=== PATIENT | female | born 1950 | race Caucasian/White ===

== ENCOUNTER 2016-12-25 09:04 | Outpatient (CLI) | payer MEDICARE, BC | END 2016-12-25 09:05 | disposition home or self-care (01) | DX: Z12.31 Encounter for screening mammogram for malignant neoplasm of breast (principal) ==

== ENCOUNTER 2017-06-04 11:21 | Outpatient (CLI) | payer MEDICARE, BC ==
[2017-06-04 19:09] LABS: BASOPHILS # (AUTO) 0.1 10^3/uL (0.0-0.1); EOSINOPHILS # (AUTO) 0.3 10^3/uL (0.0-0.7); EOSINOPHILS % (AUTO) 3.9 %; HCT - HEMATOCRIT 38.2 % (37.0-47.0); HGB - HEMOGLOBIN 12.4 g/dL (12.0-16.0); LYMPHOCYTES # (AUTO) 2.5 10^3/uL (1.5-3.5); LYMPHOCYTES % (AUTO) 35.6 %; MEAN CORPUSCULAR HEMOGLOBIN 29.3 pg (27.0-31.0); MEAN CORPUSCULAR HGB CONC 32.4 g/dL (32.0-36.0); MEAN CORPUSCULAR VOLUME 90.6 fL (81.0-99.0); MEAN PLATELET VOLUME 8.5 fL (7.9-10.8); MONOCYTES # (AUTO) 0.5 10^3/uL (0.0-1.0); MONOCYTES % (AUTO) 7.5 %; NEUTROPHILS # (AUTO) 3.6 10^3/uL (1.5-6.6); RED BLOOD COUNT 4.21 10^6/uL (4.20-5.40); RED CELL DISTRIBUTION WIDTH 14.3 % (12.0-15.0); UNCORRECTED WHITE BLOOD COUNT 6.9 x10^3/uL; WHITE BLOOD COUNT 6.9 x10^3/uL (4.8-10.8)
[2017-06-04 19:20] LABS: ALBUMIN/GLOBULIN RATIO 1.4 (1.0-2.2); BILIRUBIN,TOTAL 0.6 mg/dL (0.2-1.0); BUN - BLOOD UREA NITROGEN 25 mg/dL (6-20); CALCIUM 8.8 mg/dL (8.5-10.3); CARBON DIOXIDE - CO2 31 mmol/L (21-32); CHLORIDE 106 mmol/L (101-111); CHOL/HDL RATIO 3.7 (<4.4); CHOLESTEROL 172 mg/dL; CREATININE 0.9 mg/dL (0.4-1.0); GFR - MDRD 63 (>89); GLUCOSE 104 mg/dL (70-100); HDL CHOLESTEROL 46 mg/dL; LDL/HDL RATIO 2.3 (<4.4); POTASSIUM 4.5 mmol/L (3.5-5.0); SODIUM 142 mmol/L (135-145); TOTAL PROTEIN 6.6 g/dL (6.7-8.2); TRIGLYCERIDES 93 mg/dL; VLDL CHOLESTEROL 19 mg/dL
[2017-06-04 19:45] LABS: THYROID STIMULATING HORMONE 0.84 uIU/mL (0.34-5.60)
== END 2017-06-04 11:22 | disposition home or self-care (01) ==
LOC: LAB.WCP 11:21
PROVIDERS: ATTEND Family Medicine
DX: I10 Essential (primary) hypertension (principal); E78.5 Hyperlipidemia, unspecified; E03.9 Hypothyroidism, unspecified
CPT/HCPCS: 36415; 80053; 80061; 82607; 84443; 85025

== ENCOUNTER 2017-06-13 11:07 | Outpatient (CLI) | payer MEDICARE, BC | END 2017-06-13 11:08 | disposition home or self-care (01) | LOC: DI 11:07 | PROVIDERS: ATTEND Family Medicine | DX: R06.09 Other forms of dyspnea (principal); I51.7 Cardiomegaly | CPT/HCPCS: 93306 ==

== ENCOUNTER 2018-01-25 08:00 | Outpatient (CLI) | payer BC, MEDICARE ==
[2018-01-25 18:51] LABS: BASOPHILS # (AUTO) 0.1 10^3/uL (0.0-0.1); BASOPHILS % (AUTO) 0.8 %; EOSINOPHILS # (AUTO) 0.2 10^3/uL (0.0-0.7); EOSINOPHILS % (AUTO) 2.8 %; HGB - HEMOGLOBIN 12.7 g/dL (12.0-16.0); LYMPHOCYTES % (AUTO) 29.8 %; MEAN CORPUSCULAR HEMOGLOBIN 28.4 pg (27.0-31.0); MEAN CORPUSCULAR HGB CONC 32.4 g/dL (32.0-36.0); MEAN CORPUSCULAR VOLUME 87.7 fL (81.0-99.0); MEAN PLATELET VOLUME 8.8 fL (7.9-10.8); MONOCYTES # (AUTO) 0.5 10^3/uL (0.0-1.0); MONOCYTES % (AUTO) 8.1 %; NEUTROPHILS # (AUTO) 3.9 10^3/uL (1.5-6.6); NEUTROPHILS % (AUTO) 58.5 %; PLT - PLATELET COUNT 274 10^3/uL (130-450); RED BLOOD COUNT 4.47 10^6/uL (4.20-5.40); RED CELL DISTRIBUTION WIDTH 14.3 % (12.0-15.0); WHITE BLOOD COUNT 6.7 x10^3/uL (4.8-10.8)
[2018-01-25 19:31] LABS: ALBUMIN/GLOBULIN RATIO 1.3 (1.0-2.2); ALKALINE PHOSPHATASE 79 IU/L (42-121); ALT ALANINE AMINOTRANSFERASE 15 IU/L (10-60); AST ASPARTATE AMINOTRANSFERASE 18 IU/L (10-42); BILIRUBIN,TOTAL 0.6 mg/dL (0.2-1.0); BUN - BLOOD UREA NITROGEN 20 mg/dL (6-20); CALCIUM 9.4 mg/dL (8.5-10.3); CARBON DIOXIDE - CO2 28 mmol/L (21-32); CHLORIDE 97 mmol/L (101-111); CHOL/HDL RATIO 3.4 (<4.4); CHOLESTEROL 123 mg/dL; CREATININE 0.8 mg/dL (0.4-1.0); GFR - MDRD 72 (>89); GLUCOSE 95 mg/dL (70-100); HDL CHOLESTEROL 36 mg/dL; LDL CHOLESTEROL,CALCULATED 72 mg/dL; SODIUM 140 mmol/L (135-145); VLDL CHOLESTEROL 15 mg/dL
[2018-01-25 20:34] LABS: HB2 TOTAL 13.9 g/dL; HEMOGLOBIN A1C 0.52 g/dL; HEMOGLOBIN A1C % 5.6 % (4.6-6.2)
== END 2018-01-25 08:01 | disposition home or self-care (01) ==
LOC: LAB.WCP 08:00
PROVIDERS: ATTEND Family Medicine
DX: E78.5 Hyperlipidemia, unspecified (principal); E03.9 Hypothyroidism, unspecified; R73.09 Other abnormal glucose; E74.39 Other disorders of intestinal carbohydrate absorption; R53.83 Other fatigue
CPT/HCPCS: 36415; 80053; 80061; 82607; 83036; 83721; 84443; 85025

== ENCOUNTER 2018-01-28 11:03 | Outpatient (CLI) | payer MEDICARE, BC ==
--- NOTE | 2018-01-29 14:26 | Mammography Report ---
DIGITAL BILATERAL SCREENING MAMMOGRAM: 01/28/2018 COMPARISON: Mammogram 12/25/2016. INDICATION: Screening. TECHNIQUE: Bilateral CC and MLO breast views. FINDINGS: There are scattered fibroglandular densities. No dominant mass, architectural distortion or concerning cluster of microcalcifications are seen. IMPRESSION: 1. BI-RADS CATEGORY 1-NEGATIVE. 2. RECOMMEND ANNUAL SCREENING MAMMOGRAM. STANDARD QUALIFYING STATEMENTS: 1. This examination was reviewed with the aid of Computer-Aided Detection (CAD) . 2. A negative or benign imaging report should not delay biopsy if clinically suspicious findings are present. Consider surgical consultation if warranted. More than 5 % of cancers are not identified by imaging. 3. Dense breasts may obscure an underlying neoplasm. TD: 01/29/2018 14:26 MALLORY
== END 2018-01-28 11:04 | disposition home or self-care (01) ==
LOC: DI 11:03
PROVIDERS: ATTEND Family Medicine
DX: Z12.31 Encounter for screening mammogram for malignant neoplasm of breast (principal)
CPT/HCPCS: 77067

== ENCOUNTER 2018-01-28 11:07 | Outpatient (CLI) | payer MEDICARE ==
--- NOTE | 2018-01-28 13:19 | CT Report ---
CHEST CT WITHOUT CONTRAST: 01/28/2018 COMPARISON: No comparison INDICATION: Cough and sarcoidosis. TECHNIQUE: Noncontrast axial imaging of the chest with coronal and sagittal reformats. FINDINGS: The lungs appear clear without nodules, masses, or interstitial findings. Precarinal lymph node measures 8 mm in short axis. Right hilar lymph node measures 7 mm in short axis. No bulky adenopathy is seen about the mediastinum or tri. Prior cholecystectomy is noted. Limited upper abdomen appears otherwise unremarkable. IMPRESSION: SMALL MEDIASTINAL AND RIGHT HILAR LYMPH NODES LESS THAN 1 CM. NO OTHER HALLMARKS OF SARCOIDOSIS. CT DOSE REDUCTION STATEMENT In accordance with CT protocol optimization, one or more of the following dose reduction techniques were utilized for this exam: automated exposure control, adjustment of mA and/or KV based on patient size, or use of iterative reconstructive technique. TD: 01/28/2018 13:18 MTDD
== END 2018-01-28 11:08 | disposition home or self-care (01) ==
LOC: DI 11:07
PROVIDERS: ATTEND Family Medicine
DX: R05 Cough (principal)
CPT/HCPCS: 71250

== ENCOUNTER 2019-04-03 20:07 | Emergency (ER) | payer MEDICARE, OTHER ==
--- NOTE | 2019-04-03 20:35 | ED Physician Documentation ---
PD HPI CHEST PAIN - Stated complaint Stated Complaint: CHEST PX - Chief complaint Chief Complaint: Cardiac - History obtained from History obtained from: Patient - History of Present Illness Timing - onset: Enter time (19:30), Today Timing - onset during: Rest Timing - duration: Minutes (10) Timing - details: Abrupt onset Pain level max: 4 Pain level now: 0 Quality: Pain, Other (burning) Location: Left jaw Radiation: Other (chest) Improved by: Nothing Associated symptoms: No: Shortness of air, Diaphoresis, Nausea, Vomiting, Feeling faint / dizzy, General Weakness, Palpitations, Cough Similar symptoms before: Has not had sx before Recently seen: Not recently seen Review of Systems Constitutional: reports: Reviewed and negative Cardiac: reports: Chest pain / pressure. denies: Palpitations, Pedal edema, Calf pain Respiratory: reports: Reviewed and negative GI: reports: Reviewed and negative Neurologic: reports: Reviewed and negative PD PAST MEDICAL HISTORY - Past Medical History Past Medical History: Yes Cardiovascular: Hypertension, High cholesterol - Past Surgical History General: Cholecystectomy Ortho: Knee replacement - Present Medications Home Medications: Ambulatory Orders Medication Instructions Recorded Confirmed ALPRAZolam [Alprazolam] 0.5 mg ORAL ONCE PRN 08/11/16 Aspirin [Aspir-Low] 81 mg PO DAILY 08/11/16 08/11/16 Atorvastatin Calcium 10 mg PO DAILY 08/11/16 08/11/16 Celecoxib [Celebrex] 200 mg PO DAILY 08/11/16 08/11/16 Citalopram Hydrobromide 40 mg PO DAILY 08/11/16 08/11/16 [Citalopram HBr] Levothyroxine Sodium [Levoxyl] 175 mg PO DAILY 08/11/16 08/11/16 Telmisartan [Micardis] 80 mg PO DAILY 08/11/16 08/11/16 - Allergies Allergies/Adverse Reactions: Allergies Allergy/AdvReac Type Severity Reaction Status Date / Time methotrexate Allergy Unknown Verified 04/03/19 20:15 - Social History Does the pt smoke?: No Smoking Status: Never smoker Does the pt drink ETOH?: Yes Does the pt have substance abuse?: No - Immunizations Immunizations are current?: Yes PD ED PE NORMAL - Vitals Vital signs reviewed: Yes - General General: Alert and oriented X 3, No acute distress, Well developed/nourished - HEENT HEENT: Moist mucous membranes - Neck Neck: Supple, no meningeal sign - Cardiac Cardiac: RRR, No murmur, No gallop, No rub - Respiratory Respiratory: No respiratory distress, Clear bilaterally - Abdomen Abdomen: Soft, Non tender - Derm Derm: Normal color, Warm and dry - Extremities Extremities: No edema Results - Vitals Vitals: Oxygen O2 Source Room air - EKG (time done) No standard instances Rate: Rate (enter#) (86) Rhythm: NSR [place]: Normal Intervals: Normal OR QRS: Normal Ischemia: Normal ST segments - Labs Labs: Laboratory Tests 04/03/19 04/03/19 04/03/19 20:18 20:18 20:18 WBC 9.0 RBC 4.12 L Hgb 12.0 Hct 36.2 L MCV 87.9 MCH 29.1 MCHC 33.1 RDW 14.5 Plt Count 262 MPV 8.1 Neut # (Auto) 4.9 Lymph # (Auto) 3.2 [place] # (Auto) 0.6 Eos # (Auto) 0.3 Baso # (Auto) 0.1 Absolute Nucleated RBC 0.00 Nucleated RBC % 0.0 Sodium 137 Potassium 4.4 Chloride 101 Carbon Dioxide 26 Anion Gap 10.0 BUN 28 H Creatinine 1.0 Estimated GFR (MDRD) 55 L Glucose 100 Calcium 8.4 L Total Bilirubin 0.3 AST 19 ALT 22 Alkaline Phosphatase 95 Troponin I < 0.04 Total Protein 6.4 L Albumin 3.4 Globulin 3.0 Albumin/Globulin Ratio 1.1 Lipase 31 - Rads (name of study) chest xray Radiology: Prelim report reviewed, See rad report PD MEDICAL DECISION MAKING - ED course Complexity details: reviewed results, re-evaluated patient, considered different ial, d/w patient Departure - Departure Disposition: Home, Self Care Clinical Impression: Chest pain Condition: Good Instructions: ED Chest Pain Atypical Unkn Cause Follow-Up: Bird Messer MD [Primary Care Provider] - (Call tomorrow to arrange for next available appointment) Discharge Date/Time: 04/03/19 22:16
[2019-04-03 20:49] LABS: BASOPHILS # (AUTO) 0.1 10^3/uL (0.0-0.1); BASOPHILS % (AUTO) 0.8 %; EOSINOPHILS # (AUTO) 0.3 10^3/uL (0.0-0.7); EOSINOPHILS % (AUTO) 3.4 %; LYMPHOCYTES # (AUTO) 3.2 10^3/uL (1.5-3.5); LYMPHOCYTES % (AUTO) 34.9 %; MEAN CORPUSCULAR HEMOGLOBIN 29.1 pg (27.0-31.0); MEAN CORPUSCULAR HGB CONC 33.1 g/dL (32.0-36.0); MEAN CORPUSCULAR VOLUME 87.9 fL (81.0-99.0); MEAN PLATELET VOLUME 8.1 fL (7.9-10.8); MONOCYTES # (AUTO) 0.6 10^3/uL (0.0-1.0); MONOCYTES % (AUTO) 6.4 %; NEUTROPHILS # (AUTO) 4.9 10^3/uL (1.5-6.6); NEUTROPHILS % (AUTO) 54.5 %; PLT - PLATELET COUNT 262 10^3/uL (130-450); RED BLOOD COUNT 4.12 10^6/uL (4.20-5.40); RED CELL DISTRIBUTION WIDTH 14.5 % (12.0-15.0)
[2019-04-03 20:51] LABS: ALBUMIN 3.4 g/dL (3.2-5.5); ALBUMIN/GLOBULIN RATIO 1.1 (1.0-2.2); BILIRUBIN,TOTAL 0.3 mg/dL (0.2-1.0); CALCIUM 8.4 mg/dL (8.5-10.3); TOTAL PROTEIN 6.4 g/dL (6.7-8.2)
--- NOTE | 2019-04-03 21:07 | XRAY Report ---
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 CLINICAL HISTORY: CP that developed NEWS VIDEOTAPE EDITOR. COMPARISON: CHEST 2 VIEW PA/LAT 06/10/2017 4:09 PM. TECHNIQUE: 2 views. FINDINGS: Lungs/Pleura: No focal opacities evident. No pleural effusion. No pneumothorax. Normal volumes. Mediastinum: Heart and mediastinal contours are unremarkable. Other: None. IMPRESSION: Normal 2-view chest radiography. RADIA
[2019-04-03 22:10] VITALS: BP 117/66
== END 2019-04-03 22:16 | disposition home or self-care (01) ==
LOC: ED 20:07
DX: R07.9 Chest pain, unspecified (principal); I10 Essential (primary) hypertension
CPT/HCPCS: 36415; 71046; 80053; 83690; 84484; 85025; 93005; 99283; 99284

== ENCOUNTER 2019-04-26 16:17 | Emergency (ER) | payer MEDICARE, OTHER ==
[2019-04-26] MEDS ORDERED: IPRATROPIUM/ALBUTEROL 3 ML NEB INH STA (16:25)
[2019-04-26] MEDS ORDERED: methylPREDNISolone SUCCINATE 125 MG/2 ML VIAL IVP STA (16:26)
[2019-04-26] MEDS ORDERED: MAGNESIUM SULFATE 2 GRAM 2 GM/50 ML BAG IV ONE (16:26)
[2019-04-26 16:53] LABS: BASOPHILS % (AUTO) 0.1 %; HGB - HEMOGLOBIN 11.6 g/dL (12.0-16.0); LYMPHOCYTES % (AUTO) 13.3 %; MEAN CORPUSCULAR HEMOGLOBIN 28.4 pg (27.0-31.0); MEAN CORPUSCULAR HGB CONC 32.5 g/dL (32.0-36.0); MEAN CORPUSCULAR VOLUME 87.6 fL (81.0-99.0); MEAN PLATELET VOLUME 7.9 fL (7.9-10.8); MONOCYTES # (AUTO) 0.5 10^3/uL (0.0-1.0); MONOCYTES % (AUTO) 3.3 %; NEUTROPHILS # (AUTO) 12.6 10^3/uL (1.5-6.6); NEUTROPHILS % (AUTO) 83.3 %; PLT - PLATELET COUNT 305 10^3/uL (130-450); RED BLOOD COUNT 4.09 10^6/uL (4.20-5.40); RED CELL DISTRIBUTION WIDTH 14.9 % (12.0-15.0); WHITE BLOOD COUNT 15.1 x10^3/uL (4.8-10.8)
[2019-04-26 16:57] LABS: CALCIUM 8.8 mg/dL (8.5-10.3); CREATININE 1.2 mg/dL (0.4-1.0)
--- NOTE | 2019-04-26 17:09 | XRAY Report ---
Reason: chest pain Procedure Date: 04/26/2019 Accession Number: [id number] / [id number] Procedure: XR - Chest 1 View X-Ray CPT Code: 65024 FULL RESULT: EXAM: CHEST RADIOGRAPHY EXAM DATE: 04/26/2019 04:53 PM. CLINICAL HISTORY: Chest pain. COMPARISON: CHEST 2 VIEW 04/03/2019 8:18 PM. TECHNIQUE: 1 view. FINDINGS: Lungs/Pleura: No focal opacities evident. No pleural effusion. No pneumothorax. Mediastinum: Within exam limitations, the cardiomediastinal contour is normal. Other: None. IMPRESSION: No acute intrathoracic plain film abnormality. RADIA
--- NOTE | 2019-04-26 17:11 | ED Physician Documentation ---
PD HPI DYSPNEA - Stated complaint Stated Complaint: SOA - Chief complaint Chief Complaint: Resp - History obtained from History obtained from: Patient, Family - History of Present Illness Timing - onset: Chronic (intermittent, worsened today) Timing - onset during: Rest Timing - duration: Hours Timing - details: Intermittant Severity Comments: moderate severity, denies pain Inciting event(s): Other (unknown) Improved by: Steroids (solumedrol) Worsened by: Other (unknown) Associated symptoms: Wheezing. No: Fever, Cough, Hemoptysis, Chest pain / discomfort, Palpitations, Diaphoresis, Bilateral edema, Unilateral edema, Anxiety Similar symptoms before: No diagnosis (has been evaluated before for the same and reportedly no one is sure what this is) Recently seen: Clinic Review of Systems Constitutional: denies: Fever, Chills Ears: reports: Reviewed and negative Nose: reports: Reviewed and negative Throat: reports: Reviewed and negative Cardiac: denies: Chest pain / pressure, Palpitations Respiratory: reports: Dyspnea, Cough, Wheezing GI: reports: Reviewed and negative Skin: reports: Reviewed and negative Musculoskeletal: reports: Reviewed and negative Neurologic: reports: Reviewed and negative PD PAST MEDICAL HISTORY - Past Medical History Cardiovascular: Hypertension, High cholesterol - Past Surgical History General: Cholecystectomy Ortho: Knee replacement - Present Medications Home Medications: Ambulatory Orders Medication Instructions Recorded Confirmed Aspirin [Aspir-Low] 81 mg PO DAILY 08/11/16 08/11/16 Celecoxib [Celebrex] 200 mg PO DAILY 08/11/16 08/11/16 Citalopram Hydrobromide 40 mg PO DAILY 08/11/16 08/11/16 [Citalopram HBr] RX: ALPRAZolam [Alprazolam] 0.5 mg ORAL ONCE PRN 08/11/16 RX: Atorvastatin Calcium 10 mg PO DAILY 08/11/16 08/11/16 RX: Levothyroxine Sodium [Levoxyl] 175 mg PO DAILY 08/11/16 08/11/16 Telmisartan [Micardis] 80 mg PO DAILY 08/11/16 08/11/16 - Allergies Allergies/Adverse Reactions: Allergies Allergy/AdvReac Type Severity Reaction Status Date / Time methotrexate Allergy Unknown Verified 04/26/19 16:24 - Social History Does the pt smoke?: No Smoking Status: Never smoker Does the pt drink ETOH?: Yes Does the pt have substance abuse?: No - Immunizations Immunizations are current?: Yes PD ED PE NORMAL - Vitals Vital signs reviewed: Yes - General General: Alert and oriented X 3, No acute distress, Well developed/nourished - HEENT HEENT: Atraumatic, Pharynx benign - Neck Neck: Supple, no meningeal sign, No JVD - Cardiac Cardiac: RRR, No murmur, No gallop, No rub - Respiratory Respiratory: Clear bilaterally, Other (upper airway wheezing appears voluntary and forced) - Abdomen Abdomen: Soft, Non tender, Non distended - Female Female : Deferred - Rectal Rectal: Deferred - Derm Derm: Normal color, Warm and dry, No rash - Extremities Extremities: No deformity, No edema - Neuro Neuro: Alert and oriented X 3 Eye Opening: Spontaneous Motor: Obeys Commands Verbal: Oriented GCS Score: 15 - Psych Psych: Other (anxious ) PD ED PE EXPANDED - Respiratory Respiratory: No: Decreased breath sounds Results - Vitals Vitals: Oxygen O2 Source Room air - Labs Labs: Laboratory Tests 04/26/19 04/26/19 04/26/19 16:40 16:40 16:40 WBC 15.1 H RBC 4.09 L Hgb 11.6 L Hct 35.8 L MCV 87.6 MCH 28.4 MCHC 32.5 RDW 14.9 Plt Count 305 MPV 7.9 Neut # (Auto) 12.6 H Lymph # (Auto) 2.0 [place] # (Auto) 0.5 Eos # (Auto) 0.0 Baso # (Auto) 0.0 Absolute Nucleated RBC 0.00 Nucleated RBC % 0.0 Sodium 138 Potassium 4.0 Chloride 104 Carbon Dioxide 21 Anion Gap 13.0 BUN 26 H Creatinine 1.2 H Estimated GFR (MDRD) 45 L Glucose 181 H Calcium 8.8 TSH 0.21 L mild leukocytosis likely due to recent steroid use, mildly low tsh, pt to f/u as outpt labs otherwise at baseline - Rads (name of study) No standard instances Radiology: Final report received (no acute disease ) PD MEDICAL DECISION MAKING - ED course Complexity details: reviewed results, re-evaluated patient, considered differential, d/w patient, d/w family ED course: ddx - pneumonia, laryngomalacia, asthma, sarcoidosis, reactive upper airway, reactive airway disease 68 y/o F with hx and exam as documented. Chronic intermittent wheezing of upper airway not c/w asthma though did reportedly per nurse immediately improve after IV push of solumedrol here. Also was given a neb Her labs are stable except for a leukocytosis likely due to chronic steroid use for this "lung disease" that has not been diagnosed. Pt's examination is consistent with voluntary upper airway wheezing today. She is stable, her oxygenation is normal, her labs and xray are stable. I discussed my findings iwth the pt and family and advised her to f/u with PCP for her symptoms and to f/u regarding her thyroid function. Departure - Departure Disposition: 01 Home, Self Care Clinical Impression: Laryngeal stridor Condition: Stable Record reviewed to determine appropriate education?: Yes Follow-Up: Bird Messer DO [Primary Care Provider] - Comments: Your labs and xray today were normal except for an elevated white blood cell count that is likely due to your recent steroid use. Follow up with your doctor to recheck your symptoms and to have your doctor check your thyroid level that was sent here today in the ED. Discharge Date/Time: 04/26/19 19:02
[2019-04-26 18:20] VITALS: BP 142/71
== END 2019-04-26 19:02 | disposition home or self-care (01) ==
LOC: ED 16:17
DX: J38.5 Laryngeal spasm (principal); D72.829 Elevated white blood cell count, unspecified; R94.6 Abnormal results of thyroid function studies; I10 Essential (primary) hypertension; Z79.82 Long term (current) use of aspirin
CPT/HCPCS: 36415; 71045; 80048; 83880; 84443; 85025; 94640; 96374; 96375; 99282; 99283

== ENCOUNTER 2019-05-13 11:44 | Outpatient (CLI) | payer MEDICARE, OTHER ==
[2019-05-13 19:27] LABS: CHOL/HDL RATIO 3.4 (<4.4); CHOLESTEROL 190 mg/dL; HDL CHOLESTEROL 56 mg/dL; LDL CHOLESTEROL,CALCULATED 115 mg/dL; LDL/HDL RATIO 2.1 (<4.4); VLDL CHOLESTEROL 19 mg/dL
== END 2019-05-13 11:45 | disposition home or self-care (01) ==
LOC: LAB.WCP 11:44
PROVIDERS: ATTEND Family Medicine
DX: I25.10 Atherosclerotic heart disease of native coronary artery without angina pectoris (principal); E78.5 Hyperlipidemia, unspecified
CPT/HCPCS: 36415; 80061; 83721

== ENCOUNTER 2019-09-21 11:24 | Outpatient (CLI) | payer MEDICARE, OTHER ==
--- NOTE | 2019-09-21 15:11 | XRAY Report ---
Reason: LEFT HIP PAIN Procedure Date: 09/21/2019 Accession Number: [id number] / [id number] Procedure: WCP - Hip 1 View LT CPT Code: Final Report FULL RESULT: EXAM: LEFT HIP RADIOGRAPHY EXAM DATE: 09/21/2019 11:24 AM. CLINICAL HISTORY: Left hip pain. COMPARISON: None. TECHNIQUE: 2 views. FINDINGS: Bones: Normal. No fractures or bone lesion. Joints: There is left greater than the right femoral acetabular joint space narrowing with marginal osteophytosis, overall mild to moderate. No definite dislocation. Sacroiliac joints and pubic symphysis appear congruent. Soft Tissues: Normal. No soft tissue swelling. IMPRESSION: Left greater than right degenerative changes. RADIA
== END 2019-09-21 23:59 | disposition home or self-care (01) ==
LOC: DI.WCP 11:24
PROVIDERS: ATTEND Family Medicine
DX: M16.12 Unilateral primary osteoarthritis, left hip (principal)

== ENCOUNTER 2019-10-04 15:12 | Outpatient (CLI) | payer MEDICARE, OTHER ==
[2019-10-04 17:23] VITALS: BP 144/80
--- NOTE | 2019-10-04 17:23 | SLEEP CARE CONSULTATION ---
Information from patient questionnaire entered by Ingrid Miguel. I have reviewed and concur with the information entered by Ingrid Miguel. This document represents the service I personally performed and the decisions made by me, Viridiana Swartz, RN, MSN, [employer] SCRUBBER OPERATOR. History of Present Illness Reason for Visit: Previously diagnosed sleep apnea (mild AHI 10.5 was prescribed treatment but did not start CPAP due to new house build and no electricity. She also did not sleep well on study and unsure of results. ), Re-establish care Accompanied by: Spouse Chief Complaint: reports: Insomnia (better since start of Trazadone a month ago), Snoring (intermittently loud ) Duration of Symptoms: 10 years Usual bedtime: midnight Time it takes to fall asleep: 20-60 minutes Snores at night: Yes Observed to quit breathing while asleep: Yes Sleeps alone due to snoring: No Number of times waking at night: 1-2 Reasons for waking at night: reports: Bathroom. denies: Choking, Snoring, Gasping for air, Pain Toss, Turn, or Twitch while sleeping: No Recalls having dreams: Yes Usually gets out of bed at: 0900 Feels refreshed in the morning: Yes (since the trazadone) Morning headache: Yes (1-2 a week - resolves after advil or head massage in 30 minutes ) Sleepy or fatigued during the day: Yes (very little) Ever fallen asleep while driving: No Takes day naps: No Dreams during day naps: No Prior sleep studies: Yes Year and Where: 2015 [facility] - Parasomnia Symptoms Ever been unable to move upon waking from sleep: No Walks in sleep: No Talks in sleep: Yes (occasionally) Ever acted out dreams in sleep: No Ever felt weak in the knees when startled or emotional: No Bothered by creepy, crawly, restless sensations in legs: No Problems with memory or concentration: Yes Subjective Initial [place] Sleepiness Scale score: 7 Past Medical History Past Medical History: reports: Hypertension, Arthritis, Hypothyroidism, Anxiety, Asthma (under evaluation at asthma clinic and seen insulation cutter and former with current symptoms of exacerbation for 1 1/2 years), GERD Social History The patient's occupation is retired. Patient is and lives in [place]. Have you smoked in the past 12 months: No Alcohol use: No Caffeine use: Yes Caffeine amount and frequency: 3 diet cokes/day Family History Family history of sleep disordered breathing: No Allergies and Home Medications Known drug allergies: Yes Home medication list reviewed: Yes Allergy and home medication list: Micardis 80mg daily levothyroxine 175mg daily Citalopram 40mg daily Celebrez 200mg daily Atorvastatin 10mg daily Asprin 81mg daily Trazadone unknown dose HS DuoNeb nebulizer treatment 3 times a day for 10 days Lidocaine / NaCl nebulizer treatment 3 times a day for 10 days Review of Systems Respiratory: reports: shortness of breath, wheeze Gastrointestinal: reports: heartburn Neurological: reports: headaches Psychiatric: reports: anxiety Ear/Nose/Throat: reports: dry mouth/throat Endocrine: reports: thyroid disease, history of goiter Musculoskeletal: reports: joint pain, back pain Physical Exam Blood Pressure: 144/80 Cuff size: long Heart Rate: 85 O2 Saturation: 96 Height: 5 ft 2 in Weight: 265 lb Body Mass Index: 48.4 BMI Classification: Obesity Class 3 Neck circumference: 17 HEENT: No craniofacial malformation Nostrils: patent to airflow Turbinates: swollen Septum: midline Mouth and throat: narrow oropharynx Soft palate: long Hard palate: normal Uvula: normal Uvula visualization: 25% Mallampati Class III Tongue: enlarged in size with teeth camacho on lateral edges Tonsils: absent bilaterally Chin and jaw: normal size and position Heart: regular rate and rhythm Lungs: clear bilaterally Abdomen: soft Extremities: no edema or clubbing Neurologic: intact Impression and Plan 1.Obstructive Sleep Apnea-Hypopnea Syndrome, as previously diagnosed, but never treated. Current history includes loud and irregular snoring, observed cessation of breath while asleep, morning headache, frequent awakening during the night, insomnia, cognitive impairment, and intermittent fatigue. She also has an enlarged neck size of 17 inches, [place] lll and her BMI is 48.4. Narrow oropharynx and obesity are common predisposing factors for obstructive sleep apnea-hypopnea syndrome. Essential hypertension has been shown to be caused by untreated apnea. I recommend proceeding to polysomnography to confirm the diagnosis and to assess severity. I expect the diagnosis to be the same as the patient's weight is only 6 pounds heavier. Patient would prefer a home sleep study due to difficulty sleeping at last polysomnography. She is also undergoing evaluation from pulmonary for croup like cough that is aggravated with talking and intermittent hoarse cough as well as attends the asthma clinic. She experienced a few of those coughs today, lungs were clear. She feels with this current condition, sleep study at home will also be easier for her to complete. I informed the patient of what the sleep studies involve and after some discussion, obtained agreement to proceed. The pathophysiology of obstructive sleep apnea-hypopnea syndrome was discussed with the patient and health risks of cardiovascular and cerebrovascular disease if not treated. AASM brochure for obstructive sleep apnea-hypopnea syndrome given and reviewed. Risks of drowsy driving discussed in detail and patient advised to avoid long distance driving and to cable puller at the first sign of drowsiness. Patient agreed to plan. * Schedule home sleep study. * Avoid long distance driving or driving when feeling sleepy. * Avoid alcohol, sedative and muscle relaxant around bedtime. * Attempt to lose weight. * Review instructions provided by trained office staff on how to prepare for the sleep study. * Return for follow-up after sleep study completed. I spent 100% of this 45 minute visit face to face with the patient with greater than 50% of this was spent time counseling the patient and coordination of care.
== END 2019-10-04 15:13 | disposition home or self-care (01) ==
LOC: SC 15:12
PROVIDERS: ATTEND Nurse Practitioner Family
DX: G47.33 Obstructive sleep apnea (adult) (pediatric) (principal); E66.9 Obesity, unspecified; Z68.42 Body mass index [BMI] 45.0-49.9, adult
CPT/HCPCS: 99204; G0463; 99212

== ENCOUNTER 2019-11-20 19:30 | Outpatient (CLI) | payer MEDICARE, OTHER | END 2019-11-20 23:59 | disposition home or self-care (01) | LOC: SC 19:30 | PROVIDERS: ATTEND Internal Medicine Pulmonary Disease | DX: G47.33 Obstructive sleep apnea (adult) (pediatric) (principal); E66.01 Morbid (severe) obesity due to excess calories; Z68.42 Body mass index [BMI] 45.0-49.9, adult | CPT/HCPCS: 95806 ==

== ENCOUNTER 2019-12-07 14:00 | Outpatient (CLI) | payer MEDICARE, OTHER ==
--- NOTE | 2019-12-07 17:05 | XRAY Report ---
Reason: RIGHT FOOT PAIN Procedure Date: 12/07/2019 Accession Number: [id number] / [id number] Procedure: WCP - Foot 3 View RT CPT Code: Final Report FULL RESULT: EXAM: RIGHT FOOT RADIOGRAPHY EXAM DATE: 12/07/2019 02:00 PM. CLINICAL HISTORY: Mid foot pain, post trauma. COMPARISON: None. TECHNIQUE: 3 views. FINDINGS: Bones: The osseous structures are demineralized. This limits evaluation of the cortices. No definite fractures or bone lesions. Joints: Moderately advanced degenerative changes at the tarsal-metatarsal and intertarsal joints. Mild metatarsus adductus and hallux valgus suggests early bunion formation. Soft Tissues: Mild diffuse soft tissue swelling. IMPRESSION: Mild soft tissue swelling and degenerative changes, as described. No definite fracture or focus of bone destruction. RADIA
== END 2019-12-07 23:59 | disposition home or self-care (01) ==
LOC: DI.WCP 14:00
PROVIDERS: ATTEND Family Medicine
DX: M19.071 Primary osteoarthritis, right ankle and foot (principal)

== ENCOUNTER 2019-12-09 10:52 | Outpatient (CLI) | payer MEDICARE, OTHER ==
[2019-12-09 19:21] LABS: ALBUMIN 3.8 g/dL (3.2-5.5); ALBUMIN/GLOBULIN RATIO 1.4 (1.0-2.2); ALKALINE PHOSPHATASE 93 IU/L (42-121); ALT ALANINE AMINOTRANSFERASE 28 IU/L (10-60); AST ASPARTATE AMINOTRANSFERASE 29 IU/L (10-42); BILIRUBIN,TOTAL 0.7 mg/dL (0.2-1.0); BUN - BLOOD UREA NITROGEN 13 mg/dL (6-20); CALCIUM 8.8 mg/dL (8.5-10.3); CARBON DIOXIDE - CO2 29 mmol/L (21-32); CHLORIDE 105 mmol/L (101-111); CHOL/HDL RATIO 3.5 (<4.4); CHOLESTEROL 157 mg/dL; GFR - MDRD 55 (>89); GLUCOSE 108 mg/dL (70-100); HDL CHOLESTEROL 45 mg/dL; LDL CHOLESTEROL,CALCULATED 93 mg/dL; LDL/HDL RATIO 2.1 (<4.4); SODIUM 143 mmol/L (135-145); TOTAL PROTEIN 6.6 g/dL (6.7-8.2); VLDL CHOLESTEROL 19 mg/dL
== END 2019-12-09 23:59 | disposition home or self-care (01) ==
LOC: LAB.WCP 10:52
PROVIDERS: ATTEND Family Medicine
DX: I10 Essential (primary) hypertension (principal); E78.5 Hyperlipidemia, unspecified
CPT/HCPCS: 36415; 80053; 80061; 83721

== ENCOUNTER 2019-12-13 14:55 | Outpatient (CLI) | payer MEDICARE, OTHER ==
--- NOTE | 2019-12-14 08:43 | Mammography Report ---
Reason: SCREENING MAMMO Procedure Date: 12/13/2019 Accession Number: [id number] / [id number] Procedure: MARCY - Screening Mammo w/Serjio CPT Code: Final Report FULL RESULT: EXAM: Screening Mammo w/Serjio DATE: 12/13/2019 3:22 PM CLINICAL HISTORY: Screening encounter. TECHNIQUE: (B) - Bilateral CC and MLO views were obtained. COMPARISON: 01/28/2018 through 04/15/2011. PARENCHYMAL PATTERN: (A) - The breast(s) demonstrate(s) scattered fibroglandular densities. FINDINGS: There are no suspicious masses, calcifications, or areas of distortion. IMPRESSION: Negative examination. BI-RADS category 1. RECOMMENDATION: (ANNUAL) - Recommend routine annual screening mammography. BI-RADS CATEGORY: (1) - Negative. STANDARD QUALIFYING STATEMENTS: 1. This examination was not reviewed with the aid of Computer-Aided Detection (CAD). 2. A negative or benign imaging report should not preclude biopsy if clinically suspicious findings are present. 3. Dense breasts may obscure an underlying neoplasm. 4. This examination was reviewed with the aid of 3D breast imaging (tomosynthesis).
== END 2019-12-13 14:56 | disposition home or self-care (01) ==
LOC: DI 14:55
DX: Z12.31 Encounter for screening mammogram for malignant neoplasm of breast (principal)
CPT/HCPCS: 77063; 77067

== ENCOUNTER 2020-05-01 15:12 | Outpatient (CLI) | payer MEDICARE, OTHER ==
--- NOTE | 2020-05-01 15:32 | XRAY Report ---
Reason: LEFT SHOULDER PAIN Procedure Date: 05/01/2020 Accession Number: [id number] / [id number] Procedure: WCP - Shoulder 2 View LT CPT Code: Final Report FULL RESULT: PROCEDURE: Shoulder 2 View LT INDICATIONS: LEFT SHOULDER PAIN TECHNIQUE: 2 views of the shoulder were acquired. COMPARISON: Prior chest plain films 04/26/2019 and 04/03/2019. FINDINGS: Bones: No fractures or dislocations but there is moderately severe degenerative osteoarthritic change at the left shoulder, comprised of both glenohumeral and acromioclavicular osteoarthritic distortion with near [id number] articulation. No suspicious bony lesions. Visualized ribs appear intact. Soft tissues: No suspicious soft tissue calcifications. 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 Near ictw-jh-xmry articulation. Reviewed by: Stuart Huddleston MD on 05/01/2020 2:30 PM AK[facility] Approved by: Stuart Huddleston MD on 05/01/2020 2:30 PM AK[facility] Station ID: [id number]
== END 2020-05-01 23:59 | disposition home or self-care (01) ==
LOC: DI.WCP 15:12
PROVIDERS: ATTEND Family Medicine
DX: M19.012 Primary osteoarthritis, left shoulder (principal)

== ENCOUNTER 2020-07-31 08:00 | Outpatient (CLI) | payer MEDICARE, OTHER ==
[2020-07-31 19:34] LABS: BUN - BLOOD UREA NITROGEN 17 mg/dL (6-20); CALCIUM 8.5 mg/dL (8.5-10.3); CARBON DIOXIDE - CO2 31 mmol/L (21-32); CHLORIDE 99 mmol/L (101-111); CHOLESTEROL 155 mg/dL; CREATININE 1.1 mg/dL (0.4-1.0); GLUCOSE 94 mg/dL (70-100); HDL CHOLESTEROL 52 mg/dL; LDL CHOLESTEROL,CALCULATED 81 mg/dL; LDL/HDL RATIO 1.6 (<4.4); SODIUM 139 mmol/L (135-145); VLDL CHOLESTEROL 22 mg/dL
== END 2020-07-31 23:59 | disposition home or self-care (01) ==
LOC: LAB.WCP 08:00
PROVIDERS: ATTEND Internal Medicine Cardiovascular Disease
DX: I25.119 Atherosclerotic heart disease of native coronary artery with unspecified angina pectoris (principal); I10 Essential (primary) hypertension
CPT/HCPCS: 36415; 80048; 80053; 80061; 83721

== ENCOUNTER 2021-01-08 12:49 | Outpatient (CLI) | payer MEDICARE, OTHER ==
[2021-01-08 14:15] LABS: BASOPHILS # (AUTO) 0.1 10^3/uL (0.0-0.1); BASOPHILS % (AUTO) 0.8 %; EOSINOPHILS # (AUTO) 0.3 10^3/uL (0.0-0.7); EOSINOPHILS % (AUTO) 3.2 %; HGB - HEMOGLOBIN 12.3 g/dL (12.0-16.0); LYMPHOCYTES # (AUTO) 2.4 10^3/uL (1.5-3.5); LYMPHOCYTES % (AUTO) 30.2 %; MEAN CORPUSCULAR HEMOGLOBIN 29.1 pg (27.0-31.0); MEAN CORPUSCULAR HGB CONC 31.1 g/dL (32.0-36.0); MEAN CORPUSCULAR VOLUME 93.8 fL (81.0-99.0); MEAN PLATELET VOLUME 9.7 fL (7.9-10.8); MONOCYTES # (AUTO) 0.5 10^3/uL (0.0-1.0); MONOCYTES % (AUTO) 6.1 %; NEUTROPHILS # (AUTO) 4.7 10^3/uL (1.5-6.6); NEUTROPHILS % (AUTO) 59.4 %; PLT - PLATELET COUNT 238 10^3/uL (130-450); RED BLOOD COUNT 4.22 10^6/uL (4.20-5.40); RED CELL DISTRIBUTION WIDTH 13.7 % (12.0-15.0); WHITE BLOOD COUNT 7.9 x10^3/uL (4.8-10.8)
--- NOTE | 2021-01-08 14:24 | XRAY Report ---
PROCEDURE: Shoulder 2 View RT INDICATIONS: SHOULDER PAIN, RIGHT TECHNIQUE: 2 views of the shoulder were acquired. COMPARISON: None. FINDINGS: Bones: No fractures or dislocations. No suspicious bony lesions. Visualized ribs appear intact. M oderate periarticular osteophyte formation at the acromioclavicular and glenohumeral joints. Soft tissues: No suspicious soft tissue calcifications. IMPRESSION: Osteoarthritis. No acute fracture. No osseous lesion. If symptoms and/or clinical suspic ion for pathology continue, further assessment with repeat plain films, or advanced imaging (e.g., CT , MRI, or bone scan) is recommended for further assessment. Reviewed by: Chu Green MD on 01/08/2021 2:23 PM PST Approved by: Chu Green MD on 01/08/2021 2:23 PM PST Station ID: [id number]
--- NOTE | 2021-01-08 14:25 | XRAY Report ---
PROCEDURE: Chest 2 View X-Ray INDICATIONS: CHEST PAIN TECHNIQUE: 2 view(s) of the chest. COMPARISON: 04/26/2019 chest x-ray FINDINGS: Surgical changes and devices: None. Lungs and pleura: No pleural effusions or pneumothorax. Lungs are clear. Mediastinum: Mediastinal contours are normal. Heart size is normal. Bones and chest wall: No suspicious bony abnormalities. Soft tissues appear unremarkable. IMPRESSION: No acute process. Reviewed by: Chu Green MD on 01/08/2021 2:24 PM PST Approved by: Chu Green MD on 01/08/2021 2:24 PM [facility] Station ID: [id number]
[2021-01-08 14:38] LABS: ALBUMIN 3.8 g/dL (3.2-5.5); ALBUMIN/GLOBULIN RATIO 1.3 (1.0-2.2); ALKALINE PHOSPHATASE 101 IU/L (42-121); ALT ALANINE AMINOTRANSFERASE 18 IU/L (10-60); AST ASPARTATE AMINOTRANSFERASE 18 IU/L (10-42); BILIRUBIN,TOTAL 0.4 mg/dL (0.2-1.0); BUN - BLOOD UREA NITROGEN 18 mg/dL (6-20); CALCIUM 8.6 mg/dL (8.5-10.3); CARBON DIOXIDE - CO2 29 mmol/L (21-32); CHLORIDE 103 mmol/L (101-111); CHOL/HDL RATIO 2.6 (<4.4); CHOLESTEROL 124 mg/dL; GLUCOSE 101 mg/dL (70-100); HDL CHOLESTEROL 47 mg/dL; LDL CHOLESTEROL,CALCULATED 61 mg/dL; LDL/HDL RATIO 1.3 (<4.4); TOTAL PROTEIN 6.7 g/dL (6.7-8.2); VLDL CHOLESTEROL 16 mg/dL
== END 2021-01-08 12:50 | disposition home or self-care (01) ==
LOC: LAB 12:49 → DI 12:50
PROVIDERS: ATTEND Family Medicine
DX: R07.89 Other chest pain (principal); M25.511 Pain in right shoulder; M19.011 Primary osteoarthritis, right shoulder
CPT/HCPCS: 36415; 80053; 80061; 83721; 84484; 85025

== ENCOUNTER 2021-04-04 08:00 | Outpatient (CLI) | payer MEDICARE, OTHER ==
[2021-04-04 18:20] LABS: THYROID STIMULATING HORMONE 4.25 uIU/mL (0.34-5.60)
== END 2021-04-04 23:59 | disposition home or self-care (01) ==
LOC: LAB.WCP 08:00
PROVIDERS: ATTEND Family Medicine
DX: E03.9 Hypothyroidism, unspecified (principal)
CPT/HCPCS: 36415; 84443

== ENCOUNTER 2021-08-15 11:07 | Outpatient (CLI) | payer MEDICARE, OTHER ==
[2021-08-15 18:01] LABS: BASOPHILS # (AUTO) 0.1 10^3/uL (0.0-0.1); BASOPHILS % (AUTO) 0.8 %; EOSINOPHILS # (AUTO) 0.3 10^3/uL (0.0-0.7); EOSINOPHILS % (AUTO) 3.9 %; HGB - HEMOGLOBIN 12.5 g/dL (12.0-16.0); LYMPHOCYTES # (AUTO) 2.4 10^3/uL (1.5-3.5); LYMPHOCYTES % (AUTO) 33.7 %; MEAN CORPUSCULAR HEMOGLOBIN 28.5 pg (27.0-31.0); MEAN CORPUSCULAR HGB CONC 30.5 g/dL (32.0-36.0); MEAN CORPUSCULAR VOLUME 93.6 fL (81.0-99.0); MEAN PLATELET VOLUME 10.8 fL (7.9-10.8); MONOCYTES # (AUTO) 0.6 10^3/uL (0.0-1.0); MONOCYTES % (AUTO) 7.9 %; NEUTROPHILS # (AUTO) 3.8 10^3/uL (1.5-6.6); NEUTROPHILS % (AUTO) 53.3 %; PLT - PLATELET COUNT 266 10^3/uL (130-450); RED BLOOD COUNT 4.38 10^6/uL (4.20-5.40); RED CELL DISTRIBUTION WIDTH 13.7 % (12.0-15.0); WHITE BLOOD COUNT 7.1 x10^3/uL (4.8-10.8)
[2021-08-15 18:16] LABS: ALBUMIN 3.8 g/dL (3.2-5.5); ALBUMIN/GLOBULIN RATIO 1.3 (1.0-2.2); ALKALINE PHOSPHATASE 88 IU/L (42-121); ALT ALANINE AMINOTRANSFERASE 16 IU/L (10-60); AST ASPARTATE AMINOTRANSFERASE 20 IU/L (10-42); BILIRUBIN,TOTAL 0.8 mg/dL (0.2-1.0); BUN - BLOOD UREA NITROGEN 17 mg/dL (6-20); CALCIUM 8.8 mg/dL (8.5-10.3); CARBON DIOXIDE - CO2 29 mmol/L (21-32); CHLORIDE 102 mmol/L (101-111); CHOL/HDL RATIO 2.9 (<4.4); CHOLESTEROL 114 mg/dL; CREATININE 0.8 mg/dL (0.4-1.0); GFR - MDRD 71 (>89); GLUCOSE 100 mg/dL (70-100); HDL CHOLESTEROL 39 mg/dL; LDL CHOLESTEROL,CALCULATED 53 mg/dL; LDL/HDL RATIO 1.4 (<4.4); POTASSIUM 4.4 mmol/L (3.5-5.0); SODIUM 141 mmol/L (135-145); TOTAL PROTEIN 6.8 g/dL (6.7-8.2); TRIGLYCERIDES 108 mg/dL; VLDL CHOLESTEROL 22 mg/dL
[2021-08-15 18:28] LABS: THYROID STIMULATING HORMONE 0.18 uIU/mL (0.34-5.60)
[2021-08-15 19:47] LABS: FREE T4 (FREE THYROXINE) 1.04 ng/dL (0.58-1.64)
[2021-08-15 20:20] LABS: ESTIMATED AVERAGE GLUCOSE 123 mg/dL (70-100); HEMOGLOBIN A1c% 5.9 % (4.27-6.07)
== END 2021-08-15 23:59 | disposition home or self-care (01) ==
LOC: LAB.WCP 11:07
PROVIDERS: ATTEND Family Medicine
DX: I10 Essential (primary) hypertension (principal); E78.5 Hyperlipidemia, unspecified; E53.8 Deficiency of other specified B group vitamins; E66.01 Morbid (severe) obesity due to excess calories; E03.9 Hypothyroidism, unspecified
CPT/HCPCS: 36415; 80053; 80061; 82607; 83036; 83721; 84439; 84443; 85025

== ENCOUNTER 2021-10-20 12:19 | Outpatient (CLI) | payer MEDICARE, OTHER ==
--- NOTE | 2021-10-21 09:20 | CT Report ---
PROCEDURE: CHEST WO INDICATIONS: CHRONIC COUGH TECHNIQUE: Noncontrast 1mm axial images were acquired from the pulmonary apices to the posterior costophrenic an gles. Axial 5 mm soft tissue kernel reconstructions were performed as well as 8 mm axial MIP and cor onal and sagittal 5 mm reformations. For radiation dose reduction, the following was used: automate d exposure control, adjustment of mA and/or kV according to patient size. COMPARISON: CT chest without contrast, 01/28/2018. FINDINGS: Image quality: Excellent. Lungs and pleura: No acute air space opacities. There is 4 mm nodule in the left upper lobe (series 4 image 134) k. No pleural effusions or pneumothorax. Central and peripheral airways are patent and normal in caliber. Mediastinum: Heart size is normal. No pericardial effusion. There is moderate coronary calcificati on. No mediastinal adenopathy by size criteria. Thoracic aorta and central pulmonary arteries are no rmal in size. Esophagus is normal in caliber. Small hiatal hernia. Bones and chest wall: No suspicious bony lesions. No vertebral body compression fractures. Mild le voscoliosis. Moderate to severe degenerative changes in thoracic and upper lumbar spine. No axillary or supraclavicular adenopathy by size criteria. The thyroid is normal in size and there are no incid ental findings. Abdomen: Visualized upper abdominal solid organs and bowel loops appear normal in the absence of con trast. Cholecystectomy. IMPRESSION: 1. No acute pulmonary opacity. 2. A 4 mm nodule in the left upper lobe. Please see enclosed follow-up recommendation. 3. Moderate coronary artery calcification. Fleischner Society criteria for SOLID lung nodule followup. Nodule size (mm)Low-risk patientHigh-risk patient "d4No follow-up neededFollow-up at 12 mo; if no change, no further follow-up >5-8Dvhlbv-tf CT at 12 mo; if no change, no further follow-up needed.Initial follow-up CT at 6-12 mo, then 18-24 mo if no change. >6-8Initial follow-up CT at 6-12 mo, then 18-24 mo if no change. Initial follow-up CT at 3-6 mo, then 9-12 mo and 24 mo if no change. >8Follow-up CT at 3, 9, 24 mo. Or PET and/or biopsy.Same as for low-risk pts. Reviewed by: Ej Carvajal MD on 10/21/2021 9:19 AM PST Approved by: Ej Carvajal MD on 10/21/2021 9:19 AM PST Station ID: [id number]
== END 2021-10-20 12:20 | disposition home or self-care (01) ==
LOC: DI 12:19
PROVIDERS: ATTEND Family Medicine
DX: R91.1 Solitary pulmonary nodule (principal); I25.10 Atherosclerotic heart disease of native coronary artery without angina pectoris; R05.3 Chronic cough

== ENCOUNTER 2022-02-11 08:00 | Outpatient (CLI) | payer MEDICARE, OTHER | END 2022-02-11 23:59 | LOC: LAB.N 08:00 | PROVIDERS: ATTEND Nurse Practitioner | DX: J18.9 Pneumonia, unspecified organism (principal); Z20.822 Contact with and (suspected) exposure to COVID-19 ==

== ENCOUNTER 2022-02-18 13:48 | Outpatient (CLI) | payer MEDICARE, OTHER ==
--- NOTE | 2022-02-18 16:49 | XRAY Report ---
PROCEDURE: Foot 3 View RT INDICATIONS: R FOOT PX TECHNIQUE: 3 views of the foot were acquired. COMPARISON: None FINDINGS: Bones: No fractures or dislocations. No suspicious bony lesions. Scattered IP degenerative narrowi ng is present. Midfoot degenerative changes are prominent. Calcaneal spur is present. Prominent first MTP narrowing. Soft tissues: No tibiotalar joint effusion. Achilles tendon appears normal. IMPRESSION: Arthritic changes most severe in the mid foot as above. Reviewed by: Lianne Johnson MD on 02/18/2022 4:48 PM PDT Approved by: Lianne Johnson MD on 02/18/2022 4:48 PM PDT Station ID: [id number]
== END 2022-02-18 13:49 | disposition home or self-care (01) ==
LOC: DI.N 13:48
PROVIDERS: ATTEND Family Medicine
DX: M19.071 Primary osteoarthritis, right ankle and foot (principal)

== ENCOUNTER 2022-05-27 09:34 | Outpatient (CLI) | payer MEDICARE, OTHER ==
--- NOTE | 2022-05-28 08:13 | Mammography Report ---
BILATERAL DIGITAL SCREENING MAMMOGRAM 3D/2D: 05/27/2022 CLINICAL: Routine screening. Comparison is made to exams dated: 12/13/2019 mammogram, 01/28/2018 mammogram, 12/25/2016 mammogram, and 11/05/2013 mammogram - [facility]. The tissue of both breasts is predominantly fa tty. No significant masses, calcifications, or other findings are seen in either breast. There has been no significant interval change. IMPRESSION: NEGATIVE There is no mammographic evidence of malignancy. A 1 year screening mammogram is recommended. Based on the Tyrer Cuzick model (a risk assessment model) the patients lifetime risk is 3.4% and her 10 year risk is 2.3%. According to the ACR, ACS, and NCCN guidelines, an annual breast MRI exam rosalba g with mammogram is recommended if the patients lifetime risk is 20% or greater. This exam was interpreted at Station ID: [id number]. NOTE: For mammograms, a report in lay terms will be sent to the patient. Approximately 15% of breast malignancies will not be visualized mammographically. In the management of a palpable breast mass, a negative mammogram must not discourage biopsy of a clinically suspicious lesion. Electronically Signed By: Fortino Shaw M.D. aty/penrad:05/27/2022 11:56:34 ACR BI-RADS Category 1: Negative 3341F PARENCHYMAL PATTERN: (F) - The breast(s) demonstrate(s) diffuse fatty replacement. BI-RADS CATEGORY: (1) - 1 RECOMMENDATION: (ANNUAL) - Recommend routine annual screening mammography. [id number] 1 year screening LATERALITY: (B)
== END 2022-05-27 09:35 | disposition home or self-care (01) ==
LOC: DI 09:34
DX: Z12.31 Encounter for screening mammogram for malignant neoplasm of breast (principal)

== ENCOUNTER 2022-08-19 08:00 | Outpatient (CLI) | payer MEDICARE, OTHER ==
--- NOTE | 2022-08-20 14:41 | XRAY Report ---
PROCEDURE: Chest 2 View X-Ray INDICATIONS: BRONCHITIS TECHNIQUE: 2 view(s) of the chest. COMPARISON: None. FINDINGS: Surgical changes and devices: None. Lungs and pleura: No pleural effusions or pneumothorax. Lungs are clear. Mediastinum: Mediastinal contours are normal. Heart size is normal. Bones and chest wall: No suspicious bony abnormalities. Soft tissues appear unremarkable. IMPRESSION: Chest without acute cardiopulmonary abnormalities or focal airspace disease. Reviewed by: Fortino Shaw MD on 08/20/2022 2:40 PM PDT Approved by: Fortino Shaw MD on 08/20/2022 2:40 PM PDT Station ID: [id number]
== END 2022-08-19 23:59 | disposition home or self-care (01) ==
LOC: DI.N 08:00
PROVIDERS: ATTEND Emergency Medicine
DX: U07.1 COVID-19 (principal); J20.9 Acute bronchitis, unspecified

== ENCOUNTER 2023-01-27 10:16 | Outpatient (CLI) | payer MEDICARE, OTHER ==
[2023-01-27 12:39] LABS: PARTIAL THROMBOPLASTIN TIME 29.8 secs (24.9-33.3)
[2023-01-27 12:49] LABS: BASOPHILS # (AUTO) 0.1 10^3/uL (0.0-0.1); BASOPHILS % (AUTO) 0.8 %; EOSINOPHILS # (AUTO) 0.4 10^3/uL (0.0-0.7); EOSINOPHILS % (AUTO) 4.9 %; HCT - HEMATOCRIT 39.2 % (37.0-47.0); HGB - HEMOGLOBIN 12.1 g/dL (12.0-16.0); LYMPHOCYTES # (AUTO) 2.7 10^3/uL (1.5-3.5); LYMPHOCYTES % (AUTO) 36.4 %; MEAN CORPUSCULAR HEMOGLOBIN 28.6 pg (27.0-31.0); MEAN CORPUSCULAR HGB CONC 30.9 g/dL (32.0-36.0); MEAN CORPUSCULAR VOLUME 92.7 fL (81.0-99.0); MEAN PLATELET VOLUME 10.6 fL (7.9-10.8); MONOCYTES # (AUTO) 0.5 10^3/uL (0.0-1.0); MONOCYTES % (AUTO) 6.4 %; NEUTROPHILS # (AUTO) 3.7 10^3/uL (1.5-6.6); NEUTROPHILS % (AUTO) 51.4 %; PLT - PLATELET COUNT 235 10^3/uL (130-450); RED BLOOD COUNT 4.23 10^6/uL (4.20-5.40); RED CELL DISTRIBUTION WIDTH 13.3 % (12.0-15.0); WHITE BLOOD COUNT 7.3 x10^3/uL (4.8-10.8)
[2023-01-27 12:52] LABS: PT - PROTHROMBIN TIME 11.3 secs (9.9-12.6)
[2023-01-27 13:37] LABS: CALCIUM 8.2 mg/dL (8.5-10.3); CREATININE 0.9 mg/dL (0.4-1.0); POTASSIUM 3.7 mmol/L (3.5-5.0)
[2023-01-28 18:07] LABS: FREE TESTOSTERONE(DIRECT) 1.1 pg/mL (0.0-4.2)
== END 2023-01-27 10:17 | disposition home or self-care (01) ==
LOC: LAB.N 10:16
PROVIDERS: ATTEND Orthopaedic Surgery
DX: Z01.812 Encounter for preprocedural laboratory examination (principal)
CPT/HCPCS: 36415; 80048; 84402; 84403; 85025; 85610; 85730; 86850; 86900; 86901

== ENCOUNTER 2023-03-31 08:00 | Outpatient (CLI) | payer MEDICARE, OTHER ==
[2023-03-31 13:27] LABS: CHOL/HDL RATIO 2.3 (<4.4); CHOLESTEROL 121 mg/dL; HDL CHOLESTEROL 52 mg/dL; LDL CHOLESTEROL,CALCULATED 58 mg/dL; LDL/HDL RATIO 1.1 (<4.4); TRIGLYCERIDES 55 mg/dL; VLDL CHOLESTEROL 11 mg/dL
[2023-04-01 15:35] LABS: ESTIMATED AVERAGE GLUCOSE 108 mg/dL (70-100); HEMOGLOBIN A1c% 5.4 % (4.27-6.07)
== END 2023-03-31 23:59 | disposition home or self-care (01) ==
LOC: LAB 08:00
PROVIDERS: ATTEND Physician Assistant
DX: I10 Essential (primary) hypertension (principal); E78.5 Hyperlipidemia, unspecified; R73.01 Impaired fasting glucose; E03.9 Hypothyroidism, unspecified
CPT/HCPCS: 36415; 80061; 83036; 83721; 84439

== ENCOUNTER 2023-03-31 11:49 | Emergency (ER) | payer MEDICARE, OTHER ==
[2023-03-31 13:07] LABS: BASOPHILS # (AUTO) 0.1 10^3/uL (0.0-0.1); BASOPHILS % (AUTO) 0.8 %; EOSINOPHILS # (AUTO) 0.4 10^3/uL (0.0-0.7); EOSINOPHILS % (AUTO) 5.4 %; HCT - HEMATOCRIT 34.2 % (37.0-47.0); HGB - HEMOGLOBIN 10.5 g/dL (12.0-16.0); LYMPHOCYTES # (AUTO) 2.4 10^3/uL (1.5-3.5); LYMPHOCYTES % (AUTO) 32.7 %; MEAN CORPUSCULAR HEMOGLOBIN 28.9 pg (27.0-31.0); MEAN CORPUSCULAR HGB CONC 30.7 g/dL (32.0-36.0); MEAN CORPUSCULAR VOLUME 94.2 fL (81.0-99.0); MEAN PLATELET VOLUME 9.9 fL (7.9-10.8); MONOCYTES # (AUTO) 0.6 10^3/uL (0.0-1.0); MONOCYTES % (AUTO) 7.5 %; NEUTROPHILS % (AUTO) 53.5 %; PLT - PLATELET COUNT 244 10^3/uL (130-450); RED BLOOD COUNT 3.63 10^6/uL (4.20-5.40); RED CELL DISTRIBUTION WIDTH 14.8 % (12.0-15.0); WHITE BLOOD COUNT 7.4 x10^3/uL (4.8-10.8)
[2023-03-31 13:19] LABS: ALBUMIN 3.7 g/dL (3.2-5.5); ALBUMIN/GLOBULIN RATIO 1.4 (1.0-2.2); BILIRUBIN,TOTAL 0.5 mg/dL (0.2-1.0); CALCIUM 8.1 mg/dL (8.5-10.3); POTASSIUM 4.2 mmol/L (3.5-5.0); TOTAL PROTEIN 6.4 g/dL (6.7-8.2)
--- NOTE | 2023-03-31 13:59 | ED Physician Documentation ---
History of Present Illness - Stated complaint Stated Complaint: HIGH BLOOD PRESSURE - Chief complaint Chief Complaint: Cardiac - History obtained from History obtained from: Patient - Additonal information Additional information: Patient is a 72-year-old female presenting for evaluation of elevated blood pressure. Patient states that For the past several weeks her blood pressure readings have been elevated. She is on losartan and has been compliant. She was instructed by her PA to keep a log of her blood pressure readings and has been doing so. She was concerned that her blood pressure readings were in the 160s today and so called her PCP office who directed her to come to the emergency department for evaluation. She denies having a headache, chest pain, shortness of breath. She did have right shoulder surgery 6 weeks ago and has been recovering well from that. She has reported some mild swelling to bilateral lower extremities and reports that she has been sleeping in a recliner versus in her bed. She otherwise denies any discomfort to her legs. Review of Systems Constitutional: denies: Fever Cardiac: denies: Chest pain / pressure Respiratory: denies: Dyspnea GI: denies: Abdominal Pain Musculoskeletal: denies: Back pain, Extremity pain Neurologic: denies: Headache PD PAST MEDICAL HISTORY - Past Medical History Cardiovascular: Hypertension, High cholesterol - Past Surgical History General: Cholecystectomy Ortho: Knee replacement - Present Medications Home Medications: Ambulatory Orders Medication Instructions Recorded Confirmed ALPRAZolam [Alprazolam] 0.5 mg ORAL ONCE PRN 08/11/16 Aspirin [Aspir-Low] 81 mg PO DAILY 08/11/16 08/11/16 Atorvastatin Calcium 10 mg PO DAILY 08/11/16 08/11/16 Celecoxib [Celebrex] 200 mg PO DAILY 08/11/16 03/31/23 Citalopram Hydrobromide 40 mg PO DAILY 08/11/16 03/31/23 [Citalopram HBr] Levothyroxine Sodium [Levoxyl] 175 mg PO DAILY 08/11/16 03/31/23 Telmisartan [Micardis] 80 mg PO DAILY 08/11/16 03/31/23 Omeprazole Magnesium 20 mg PO DAILY 03/31/23 03/31/23 Rosuvastatin Calcium [Crestor] 40 mg PO DAILY 03/31/23 03/31/23 Trazodone HCl 100 mg PO DAILY 03/31/23 03/31/23 - Allergies Allergies/Adverse Reactions: Allergies Allergy/AdvReac Type Severity Reaction Status Date / Time methotrexate Allergy Unknown Verified 03/31/23 12:12 - Social History Does the pt smoke?: No Smoking Status: Never smoker Does the pt drink ETOH?: Yes Does the pt have substance abuse?: No - Immunizations Immunizations are current?: Yes PD ED PE NORMAL - General General: Alert and oriented X 3, No acute distress, Well developed/nourished - HEENT HEENT: Atraumatic - Neck Neck: Supple, no meningeal sign - Cardiac Cardiac: RRR, No murmur, Strong equal pulses - Respiratory Respiratory: No respiratory distress, Clear bilaterally - Abdomen Abdomen: Soft, Non tender - Derm Derm: Warm and dry - Extremities Extremities: No tenderness to palpate, No calf tenderness / cord - Neuro Neuro: Alert and oriented X 3, No motor deficit, Normal speech Results - Vitals Vitals: Vital Signs - 24 hr 03/31/23 03/31/23 03/31/23 12:08 12:52 14:13 Temperature 36 C L Heart Rate 71 74 73 Respiratory 16 21 14 Rate Blood Pressure 161/85 H 166/79 H 148/81 H O2 Saturation 97 96 99 Oxygen O2 Source Room air - EKG (time done) 1246 EKG releavant findings:: EKG personally interpreted by author of this note. Relevant findings are: Rate 68, normal sinus rhythm, no STEMI, no ST depressions Rate: Rate (enter#) (68) Rhythm: NSR Intervals: No: Prolonged QT Ischemia: No: ST elevation c/w ischemia - Labs Labs: Laboratory Tests 03/31/23 03/31/23 03/31/23 12:55 12:55 12:55 WBC 7.4 RBC 3.63 L Hgb 10.5 L Hct 34.2 L MCV 94.2 MCH 28.9 MCHC 30.7 L RDW 14.8 Plt Count 244 MPV 9.9 Neut # (Auto) 4.0 Lymph # (Auto) 2.4 [place] # (Auto) 0.6 Eos # (Auto) 0.4 Baso # (Auto) 0.1 Absolute Nucleated RBC 0.00 Nucleated RBC % 0.0 Sodium 143 Potassium 4.2 Chloride 105 Carbon Dioxide 31 Anion Gap 7.0 BUN 15 Creatinine 1.0 Estimated GFR (MDRD) 55 L Glucose 109 H Calcium 8.1 L Total Bilirubin 0.5 AST 16 ALT 12 Alkaline Phosphatase 86 B-Natriuretic Peptide 91 Total Protein 6.4 L Albumin 3.7 Globulin 2.7 Albumin/Globulin Ratio 1.4 TSH 03/31/23 12:55 WBC RBC Hgb Hct MCV MCH MCHC RDW Plt Count MPV Neut # (Auto) Lymph # (Auto) [place] # (Auto) Eos # (Auto) Baso # (Auto) Absolute Nucleated RBC Nucleated RBC % Sodium Potassium Chloride Carbon Dioxide Anion Gap BUN Creatinine Estimated GFR (MDRD) Glucose Calcium Total Bilirubin AST ALT Alkaline Phosphatase B-Natriuretic Peptide Total Protein Albumin Globulin Albumin/Globulin Ratio TSH 64.78 H PD Medical Decision Making - ED course Complexity details: reviewed results, re-evaluated patient, d/w patient ED course: Patient is a 72-year-old female with a history of hypertension and hypothyroidism presenting for evaluation of elevated blood pressure readings. She has no symptoms to suggest hypertensive emergency and denies chest pain or shortness of air. EKG is reviewed without signs of acute ischemia. CBC, chemistries were obtained without significant findings. Her PA had ordered outpatient thyroid studies which I ordered for the patient today as we are getting blood work. Her TSH is elevated and her free T4 is low. Her blood pressures have improved here without any intervention. Patient is instructed on need for close follow-up with her PCP in regards to her blood pressure as well as her thyroid.She denies chest pain or shortness of breath. She does not have symptoms suggest PE or ACS. She has mild swelling to bilateral legs but does not appear to be in heart failure. She is counseled on concerning symptoms to return for. Departure - Departure Disposition: 01 Home, Self Care Clinical Impression: Essential hypertension, Hypothyroidism Condition: Stable Instructions: ED HTN Established, ED Hypothyroidism Follow-Up: Nadya Hdez PA-C [Provider Admit Priv/Credential] - Comments: Please have close follow-up with your PCP in regards to your blood pressure as well as your thyroid. Your thyroid labs today show that your thyroid levels are low and you need some adjustments made to your Synthroid dosing. This is best done by your PCP as they will continue to monitor your thyroid levels. If it anytime you develop chest pain, shortness of breath or have any new concerns please return to the emergency department. Please continue to keep a log of your blood pressure readings and take this to your appointment next week. Discharge Date/Time: 03/31/23 14:23
[2023-03-31 14:15] VITALS: BP 148/81
== END 2023-03-31 14:23 | disposition home or self-care (01) ==
LOC: ED 11:49
DX: I10 Essential (primary) hypertension (principal); E03.9 Hypothyroidism, unspecified; R60.0 Localized edema; E78.5 Hyperlipidemia, unspecified; R73.01 Impaired fasting glucose
CPT/HCPCS: 36415; 80053; 80061; 83036; 83721; 83880; 84439; 84443; 85025; 93005; 99283; 99284

== ENCOUNTER 2023-04-28 14:15 | Outpatient (CLI) | payer MEDICARE, OTHER ==
--- NOTE | 2023-04-28 15:04 | DEXA Report ---
PROCEDURE: Dexa Spine and/or Hip INDICATIONS: POST MENOPAUSAL TECHNIQUE: Dual energy x-ray absorptiometry (DXA) was performed on a [employer] System. Regions measur ed are the AP Spine, femoral neck, and if needed forearm. COMPARISON: None FINDINGS: Lumbar Spine: Bone Mineral Density 1.802 g/cm/cm,T score 4.9. Left Femoral Neck: Bone Mineral Density 1.075 g/cm/cm, T score 0.3. Left Hip: Bone Mineral Density 1.218 g/cm/cm,T score 1.7. (T score greater or equal to -1.0: NORMAL) (T score from -1.1 to -2.4: OSTEOPENIA) (T score less than or equal to -2.5 to: OSTEOPOROSIS) Impression: By WHO criteria, this patient has normal bone mineral density. Patients with diagnosis of osteoporosis or osteopenia should have regular bone mineral density assess ment. For those eligible for Medicare, routine testing is allowed once every 2 years. Testing frequ ency can be increased for patients who have rapidly progressing disease or for those who are receivin g medical therapy to restore bone mass. Reviewed by: Jack Douglass MD on 04/28/2023 3:03 PM PDT Approved by: Jack Douglass MD on 04/28/2023 3:03 PM PDT Station ID: [id number]
== END 2023-04-28 14:16 | disposition home or self-care (01) ==
LOC: DI 14:15
PROVIDERS: ATTEND Physician Assistant
DX: Z78.0 Asymptomatic menopausal state (principal)

== ENCOUNTER 2023-09-18 12:34 | Outpatient (CLI) | payer MEDICARE, OTHER ==
[2023-09-18 17:57] LABS: BASOPHILS # (AUTO) 0.1 10^3/uL (0.0-0.1); BASOPHILS % (AUTO) 0.5 %; EOSINOPHILS # (AUTO) 0.4 10^3/uL (0.0-0.7); EOSINOPHILS % (AUTO) 3.3 %; HCT - HEMATOCRIT 39.5 % (37.0-47.0); HGB - HEMOGLOBIN 12.1 g/dL (12.0-16.0); LYMPHOCYTES # (AUTO) 2.9 10^3/uL (1.5-3.5); LYMPHOCYTES % (AUTO) 26.1 %; MEAN CORPUSCULAR HEMOGLOBIN 28.7 pg (27.0-31.0); MEAN CORPUSCULAR HGB CONC 30.6 g/dL (32.0-36.0); MEAN CORPUSCULAR VOLUME 93.8 fL (81.0-99.0); MEAN PLATELET VOLUME 10.3 fL (7.9-10.8); MONOCYTES # (AUTO) 0.6 10^3/uL (0.0-1.0); MONOCYTES % (AUTO) 5.1 %; NEUTROPHILS # (AUTO) 7.1 10^3/uL (1.5-6.6); NEUTROPHILS % (AUTO) 63.8 %; PLT - PLATELET COUNT 317 10^3/uL (130-450); RED BLOOD COUNT 4.21 10^6/uL (4.20-5.40); RED CELL DISTRIBUTION WIDTH 15.9 % (12.0-15.0); WHITE BLOOD COUNT 11.1 x10^3/uL (4.8-10.8)
[2023-09-18 18:00] LABS: PARTIAL THROMBOPLASTIN TIME 30.9 secs (24.9-33.3)
[2023-09-18 18:11] LABS: PT - PROTHROMBIN TIME 11.2 secs (9.9-12.6)
[2023-09-18 18:47] LABS: CALCIUM 8.3 mg/dL (8.5-10.3); POTASSIUM 4.1 mmol/L (3.5-4.5)
== END 2023-09-18 12:35 | disposition home or self-care (01) ==
LOC: LAB.N 12:34
PROVIDERS: ATTEND Physician Assistant
DX: Z01.812 Encounter for preprocedural laboratory examination (principal); D86.89 Sarcoidosis of other sites
CPT/HCPCS: 36415; 80048; 85025; 85610; 85730

== ENCOUNTER 2024-03-19 15:45 | Emergency (ER) | payer MEDICARE, OTHER ==
[2024-03-19 15:59] VITALS: O2SAT 96
--- NOTE | 2024-03-19 16:05 | ED Physician Documentation ---
PD HPI HEAD INJURY - Stated complaint Stated Complaint: GLF - Chief complaint Chief Complaint: Trauma Hd/Nk - History obtained from History obtained from: Patient - Additional information Additional information: She had a mechanical trip and fall today in her garden and went forward and hit her head on the concrete. This is only about 45 minutes ago. She did not blackout but has at least a moderate to severe frontal headache. No other injuries. No loss of consciousness. PD PAST MEDICAL HISTORY - Past Medical History Past Medical History: Yes Cardiovascular: Hypertension, High cholesterol - Past Surgical History Past Surgical History: Yes General: Cholecystectomy Ortho: Knee replacement - Present Medications Home Medications: Ambulatory Orders Medication Instructions Recorded Confirmed Aspirin [Aspir-Low] 81 mg PO DAILY 08/11/16 03/19/24 Celecoxib [Celebrex] 200 mg PO DAILY 08/11/16 03/19/24 Citalopram Hydrobromide 40 mg PO DAILY 08/11/16 03/19/24 [Citalopram HBr] Levothyroxine Sodium [Levoxyl] 175 mg PO DAILY 08/11/16 03/19/24 Telmisartan [Micardis] 80 mg PO DAILY 08/11/16 03/19/24 Omeprazole Magnesium 20 mg PO DAILY 03/31/23 03/19/24 Rosuvastatin Calcium [Crestor] 40 mg PO DAILY 03/31/23 03/19/24 Trazodone HCl 100 mg PO DAILY 03/31/23 03/19/24 - Allergies Allergies/Adverse Reactions: Allergies Allergy/AdvReac Type Severity Reaction Status Date / Time methotrexate Allergy Unknown Verified 03/19/24 15:48 - Social History Does the pt smoke?: No Smoking Status: Never smoker Does the pt drink ETOH?: Yes Does the pt have substance abuse?: No - Immunizations Immunizations are current?: Yes PD ED PE NORMAL - Vitals Vital signs reviewed: Yes - General General: Alert and oriented X 3, No acute distress - HEENT HEENT: PERRL, EOMI, Other (There is a hematoma with overlying abrasion on the central forehead. She states she is up-to-date on tetanus.) - Neck Neck: Supple, no meningeal sign, No bony TTP, C-Spine cleared by NEXUS criteria - Derm Derm: Normal color, Warm and dry - Extremities Extremities: Other (She was a bit worried about her shoulders, both have been replaced, she has good range of motion of both.) - Neuro Neuro: Alert and oriented X 3, Normal speech Eye Opening: Spontaneous Motor: Obeys Commands Verbal: Oriented GCS Score: 15 Results - Vitals Vitals: Vital Signs - 24 hr 03/19/24 15:48 Temperature 36.8 C Heart Rate 78 Respiratory 18 Rate Blood Pressure 150/90 H O2 Saturation 96 Oxygen O2 Source Room air - Rads (name of study) CT of the head was negative with respect to intracranial trauma or skull fracture. Relevant Findings:: Final report received, EMP independent interpretation of test Departure - Departure Disposition: Home, Self Care Clinical Impression: Ground-level fall Forehead contusion Qualifiers: Encounter type: initial encounter Qualified Code(s): S00.83XA - Contusion of other part of head, initial encounter Condition: Good Record reviewed to determine appropriate education?: Yes Instructions: ED Head Injury Closed Comments: No evidence of serious brain injury or bleeding on the brain on CAT scan. Tylenol as needed for pain per package instructions. Call your doctor to arrange a follow-up appointment, make the next available appointment. In the interim, return anytime if worse or if new symptoms develop. Forms: PCP List
[2024-03-19] MEDS: ACETAMINOPHEN 500 MG TABLET PO STA (16:18)
--- NOTE | 2024-03-19 18:07 | CT Report ---
PROCEDURE: Head WO INDICATIONS: head inj TECHNIQUE: Noncontrast 4.5 mm thick angled axial sections acquired from the foramen magnum to the vertex. For r adiation dose reduction, the following was used: automated exposure control, adjustment of mA and/or kV according to patient size. COMPARISON: 08/11/2016 FINDINGS: Image quality: Excellent. CSF spaces: Basal cisterns are patent. No extra-axial fluid collections. Ventricles are normal in size and shape. Brain: No midline shift. No intracranial masses or hemorrhage. Angel-white matter interface is norm al. Skull and face: Calvarial hematoma can be seen within the left forehead. No associated calvarial fra cture is seen. Calvarium and visualized facial bones are intact, without suspicious lesions. Sinuses: Visualized sinuses and mastoids are clear. IMPRESSION: Left forehead scalp hematoma, without an associated calvarial fracture. No intracranial hemorrhage is seen. No significant intracranial abnormality is seen. Reviewed by: Andre Downey MD on 03/19/2024 5:05 PM BART Approved by: Andre Downey MD on 03/19/2024 5:05 PM BART Station ID: [id number]
[2024-03-19 18:27] VITALS: BP 138/73
== END 2024-03-19 18:29 | disposition home or self-care (01) ==
LOC: ED 15:45
DX: S00.81XA Abrasion of other part of head, initial encounter (principal); S00.83XA Contusion of other part of head, initial encounter; W01.10XA Fall on same level from slipping, tripping and stumbling with subsequent striking against unspecified object, initial encounter; Y93.H2 Activity, gardening and landscaping; Y92.007 Garden or yard of unspecified non-institutional (private) residence as the place of occurrence of the external cause
CPT/HCPCS: 70450; 99284; A9270

== ENCOUNTER 2024-04-29 10:57 | Outpatient (CLI) | payer MEDICARE, OTHER ==
--- NOTE | 2024-05-02 10:44 | Mammography Report ---
BILATERAL DIGITAL DIAGNOSTIC MAMMOGRAM 3D/2D: 04/29/2024 CLINICAL: Bilateral diffuse intermittent breast pain. Comparison is made to exams dated: 08/13/2023 mammogram, 05/27/2022 mammogram, and 12/13/2019 mammogram - [facility]. There are scattered areas of fibroglandular density in both breasts (category b / 25%-50% glandular t issue). No significant masses, calcifications, or other findings are seen in either breast. IMPRESSION: NEGATIVE There is no abnormality seen in either breast to correspond with the diffuse area of clinical concern and pain in the upper aspects, however, clinical correlation and clinical followup are recommended. If symptoms become more clinical concerning or more focal, consider repeat targeted diagnostic mammo gram and possible ultrasound. There is no mammographic evidence of malignancy. Return to annual mammogram screening schedule is rec ommended. Future imaging is recommended as follows: 08/13/2024 screening mammogram. Based on the Tyrer Cuzick model (a risk assessment model) the patient's lifetime risk is 2.9% and her 10 year risk is 2.3%. According to the ACR, ACS, and NCCN guidelines, an annual breast MRI exam rosalba g with mammogram is recommended if the patient's lifetime risk is 20% or greater. This exam was interpreted at Station ID: [id number]. NOTE: For mammograms, a report in lay terms will be sent to the patient. Approximately 15% of breast malignancies will not be visualized mammographically. In the management of a palpable breast mass, a negative mammogram must not discourage biopsy of a clinically suspicious lesion. Electronically Signed By: Adal Mitchell M.D. lc/:04/29/2024 11:40:03 letter sent: No_Letter ACR BI-RADS Category 1: Negative 3341F PARENCHYMAL PATTERN: (A) - The breast(s) demonstrate(s) scattered fibroglandular densities. BI-RADS CATEGORY: (1) - 1 Mammogram [id number] return to screening LATERALITY: (B)
== END 2024-04-29 10:58 | disposition home or self-care (01) ==
LOC: DI 10:57
PROVIDERS: ATTEND Physician Assistant
DX: N64.4 Mastodynia (principal)

== ENCOUNTER 2024-06-16 08:00 | Outpatient (CLI) | payer MEDICARE, OTHER ==
[2024-06-16 19:29] LABS: INFLUENZA A- RESP PCR PANEL NOT DETECTED; INFLUENZA B - RESP PCR PANEL NOT DETECTED; RSV- RESP PCR PANEL NOT DETECTED; SARS-CoV-2 -RESP PCR PANEL NOT DETECTED
== END 2024-06-16 23:59 | disposition home or self-care (01) ==
LOC: LAB.WCP 08:00
PROVIDERS: ATTEND Physician Assistant
DX: J06.9 Acute upper respiratory infection, unspecified (principal)
CPT/HCPCS: 87637

== ENCOUNTER 2024-06-17 11:55 | Outpatient (CLI) | payer MEDICARE, OTHER ==
[2024-06-17 17:49] LABS: BASOPHILS # (AUTO) 0.1 10^3/uL (0.0-0.1); BASOPHILS % (AUTO) 0.6 %; EOSINOPHILS # (AUTO) 0.2 10^3/uL (0.0-0.7); EOSINOPHILS % (AUTO) 1.9 %; HCT - HEMATOCRIT 36.3 % (37.0-47.0); HGB - HEMOGLOBIN 11.3 g/dL (12.0-16.0); LYMPHOCYTES # (AUTO) 3.8 10^3/uL (1.5-3.5); LYMPHOCYTES % (AUTO) 37.5 %; MEAN CORPUSCULAR HEMOGLOBIN 28.3 pg (27.0-31.0); MEAN CORPUSCULAR HGB CONC 31.1 g/dL (32.0-36.0); MEAN PLATELET VOLUME 10.2 fL (7.9-10.8); MONOCYTES # (AUTO) 0.7 10^3/uL (0.0-1.0); MONOCYTES % (AUTO) 7.1 %; NEUTROPHILS # (AUTO) 5.3 10^3/uL (1.5-6.6); NEUTROPHILS % (AUTO) 52.6 %; PLT - PLATELET COUNT 288 10^3/uL (130-450); RED BLOOD COUNT 3.99 10^6/uL (4.20-5.40); RED CELL DISTRIBUTION WIDTH 13.8 % (12.0-15.0); WHITE BLOOD COUNT 10.1 x10^3/uL (4.8-10.8)
[2024-06-17 18:25] LABS: ALBUMIN 3.9 g/dL (3.2-5.5); ALBUMIN/GLOBULIN RATIO 1.7 (1.0-2.2); ALKALINE PHOSPHATASE 79 IU/L (42-121); ALT ALANINE AMINOTRANSFERASE 12 IU/L (10-60); AST ASPARTATE AMINOTRANSFERASE 15 IU/L (10-42); BILIRUBIN,TOTAL 0.3 mg/dL (0.2-1.0); BUN - BLOOD UREA NITROGEN 19 mg/dL (6-20); CALCIUM 8.9 mg/dL (8.5-10.3); CARBON DIOXIDE - CO2 29 mmol/L (21-32); CHLORIDE 107 mmol/L (101-111); CHOL/HDL RATIO 2.3 (<4.4); CHOLESTEROL 117 mg/dL; GFR - MDRD 54 (>89); GLUCOSE 101 mg/dL (74-104); HDL CHOLESTEROL 51 mg/dL; LDL CHOLESTEROL,CALCULATED 53 mg/dL; POTASSIUM 3.9 mmol/L (3.5-4.5); SODIUM 141 mmol/L (135-145); THYROID STIMULATING HORMONE 0.48 uIU/mL (0.34-5.60); TOTAL PROTEIN 6.2 g/dL (6.4-8.9); TRIGLYCERIDES 66 mg/dL; VLDL CHOLESTEROL 13 mg/dL
== END 2024-06-17 11:56 | disposition home or self-care (01) ==
LOC: LAB.N 11:55
PROVIDERS: ATTEND Physician Assistant
DX: I10 Essential (primary) hypertension (principal); E03.9 Hypothyroidism, unspecified; E78.5 Hyperlipidemia, unspecified
CPT/HCPCS: 36415; 80053; 80061; 83721; 84439; 84443; 85025; 87637

== ENCOUNTER 2024-07-19 13:52 | Outpatient (CLI) | payer MEDICARE, OTHER ==
[2024-07-19 18:05] LABS: ABSOLUTE RETICS # AUTO 0.079 10^6/uL (0.020-0.110); BASOPHILS # (AUTO) 0.1 10^3/uL (0.0-0.1); BASOPHILS % (AUTO) 0.7 %; EOSINOPHILS # (AUTO) 0.3 10^3/uL (0.0-0.7); EOSINOPHILS % (AUTO) 4.4 %; HCT - HEMATOCRIT 37.3 % (37.0-47.0); HGB - HEMOGLOBIN 11.2 g/dL (12.0-16.0); LYMPHOCYTES # (AUTO) 1.9 10^3/uL (1.5-3.5); LYMPHOCYTES % (AUTO) 27.9 %; MEAN CORPUSCULAR HEMOGLOBIN 27.7 pg (27.0-31.0); MEAN CORPUSCULAR VOLUME 92.3 fL (81.0-99.0); MEAN PLATELET VOLUME 10.4 fL (7.9-10.8); MONOCYTES # (AUTO) 0.7 10^3/uL (0.0-1.0); MONOCYTES % (AUTO) 10.1 %; NEUTROPHILS # (AUTO) 3.9 10^3/uL (1.5-6.6); NEUTROPHILS % (AUTO) 56.8 %; PLT - PLATELET COUNT 263 10^3/uL (130-450); RED BLOOD COUNT 4.04 10^6/uL (4.20-5.40); RED CELL DISTRIBUTION WIDTH 14.1 % (12.0-15.0); RETICULOCYTE COUNT % (AUTO) 1.96 % (0.5-2.3); WHITE BLOOD COUNT 6.8 x10^3/uL (4.8-10.8)
[2024-07-19 18:42] LABS: FERRITIN 38.1 ng/mL (11.0-306.8)
== END 2024-07-19 13:53 | disposition home or self-care (01) ==
LOC: LAB.N 13:52
PROVIDERS: ATTEND Physician Assistant
DX: D64.9 Anemia, unspecified (principal)
CPT/HCPCS: 36415; 82607; 82728; 82746; 83540; 84466; 85025; 85045